=== PATIENT | male | born 1945 | race Caucasian/White ===

== ENCOUNTER → 2016-12-24 09:51 | Outpatient (CLI) | payer MEDICARE, OTHER | END | disposition home or self-care (01) | LOC: D.CT 12-19 14:00 | DX: R41.3 Other amnesia (principal) ==

== ENCOUNTER → 2018-01-12 14:39 | Outpatient (CLI) | payer MEDICARE, OTHER | END | disposition home or self-care (01) | LOC: D.MRI 14:39 | DX: F03.90 Unspecified dementia, unspecified severity, without behavioral disturbance, psychotic disturbance, mood disturbance, and anxiety (principal) ==

== ENCOUNTER → 2019-05-06 11:24 | Outpatient (CLI) | payer MEDICARE, BC ==
--- NOTE | 2019-05-10 14:34 | ST ---
PATIENT:FELICIA RAPHAEL MEDICAL RECORD: [id number] SEX: M LOCATION:[facility] ORDER #: ADMISSION DATE: 05/06/19 AGE OF PATIENT: 73 REFERRING PHYSICIAN: INTERPRETING PHYSICIAN: ALEXIS CALL MD DATE OF SERVICE: 05/06/2019 PROCEDURE: Nuclear stress test. INDICATION: Angina, coronary artery disease, and hypertension. He was exercised on standard Lexiscan protocol with 31 mCi of sestamibi injected at peak stress and 10 mCi was used previously for rest images. FINDINGS: Gated SPECT reveals preserved ejection fraction at 67% with good wall motioning and thickening and brightening throughout all segments. SPECT imaging Cardiolite was used as myocardial perfusion agent. There is significant reversibility anteriorly and laterally, the degree of reversibility is mild. The amount of myocardium involved is large. This includes the basal, mid, apical anterior segments, apical lateral, mid lateral, and basal lateral segments. There is as well severe reversibility throughout the inferior segments. This includes the basal, mid, apical, and inferior segments. OVERALL IMPRESSION: This is a markedly abnormal high risk nuclear stress test with reversible ischemia anteriorly, laterally, and inferiorly suggestive of multivessel coronary artery disease. TRANSINT:[id number] Voice Confirmation ID: [id number] DOCUMENT ID: [id number] ALEXIS CALL MD at [id number] CC: GILL TROY [id number] DICTATION DATE: 05/09/19 1228 BLOW DOWN OPERATOR: 05/09/19 1240 DEP CLI 05/06/19 [facility] [address] [place] [address]
== END | disposition home or self-care (01) ==
LOC: D.HCCARDIO 11:24
PROVIDERS: ATTEND Internal Medicine Interventional Cardiology
DX: I25.119 Atherosclerotic heart disease of native coronary artery with unspecified angina pectoris (principal); I10 Essential (primary) hypertension